=== PATIENT | female | born 1985 | race Caucasian/White ===

== ENCOUNTER 2019-02-05 08:19 | Emergency (ER) | payer BC, MEDICAID, OTHER ==
[~2019-02-05] VITALS: Ht 157.5 cm; Wt 66.0 kg
[2019-02-05 09:08] VITALS: BP 120/68
== END 2019-02-05 09:16 | disposition home or self-care (01) ==
LOC: ER 08:19
DX: S90.861A Insect bite (nonvenomous), right foot, initial encounter (principal); L03.115 Cellulitis of right lower limb; W57.XXXA Bitten or stung by nonvenomous insect and other nonvenomous arthropods, initial encounter; Y93.89 Activity, other specified; Y92.89 Other specified places as the place of occurrence of the external cause; Y99.8 Other external cause status
CPT/HCPCS: 99283